=== PATIENT | male | born 1970 | race American Indian/Alaskan Native ===

== ENCOUNTER 2018-07-23 06:04 | Emergency (ER) | payer BC ==
[2018-07-23] MEDS ORDERED: Sodium Chloride 0.9% 500 ML IV STA (07:16)
--- NOTE | 2018-07-23 07:20 | ED PDOC ---
Arrival/HPI - History of Present Illness Narrative History of Present Illness (Text): 07/23/18 07:16 47 year old male with no pertinent past medical history presents to the emergency department today reporting right sided flank pain that began this morning. Patient states its throbbing in nature with radiation to the right groin. Patient reports this being his first time having this discomfort. Patient denies taking anything to help the pain. Patient in conjunction had one episode of non-billious, non bloody emesis. Patient denies any fevers, chills, nausea, vomiting, chest pain, shortness of breath, syncopal episodes, or any other complaints. Medical history: Denies Medications: Denies Allergies: Penicillins Surgical history: Penile surgery as a child PMD: None Time/Duration: 4-6 hours Symptom Onset: Sudden Symptom Course: Unchanged Quality: Throbbing Severity Level: 7 Activities at Onset: Rest Context: Sitting <Geronimo Gallagher - Last Filed: 07/23/18 10:49> <Scooter Rand - Last Filed: 07/23/18 11:08> - General Chief Complaint: Back Pain Time Seen by Provider: 07/23/18 07:05 Past Medical History - Provider Review Nursing Documentation Reviewed: Yes - Infectious Disease Hx of Infectious Diseases: None - Psychiatric Hx Substance Use: No - Anesthesia Hx Anesthesia: No <Geronimo Gallagher - Last Filed: 07/23/18 10:49> Family/Social History - Physician Review Nursing Documentation Reviewed: Yes Family/Social History: No Known Family HX Smoking Status: Former Smoker Hx Alcohol Use: Yes (1 beer) Frequency of alcohol use: Daily Hx Substance Use: No <Geronimo Gallagher - Last Filed: 07/23/18 10:49> Allergies/Home Meds <Geronimo Gallagher - Last Filed: 07/23/18 10:49> <Scooter Rand - Last Filed: 07/23/18 11:08> Allergies/Adverse Reactions: Allergies Penicillins Adverse Reaction (Verified 07/23/18 06:43) SWELLING Review of Systems - Physician Review All systems were reviewed & negative as marked: Yes - Review of Systems Constitutional: Normal. absent: Fatigue, Weight Change Eyes: Normal. absent: Vision Changes, Photophobia ENT: Normal. absent: Hearing Changes, Rhinorrhea Respiratory: Normal. absent: SOB, Cough Cardiovascular: Normal. absent: Chest Pain, Syncope Gastrointestinal: Abdominal Pain, Vomiting. absent: Appetite Changes Genitourinary Male: Normal. absent: Dysuria, Frequency Musculoskeletal: Normal. absent: Arthralgias, Back Pain Skin: Normal. absent: Rash, Pruritis Neurological: Normal. absent: Headache, Dizziness, Focal Weakness Endocrine: Normal. absent: Diaphoresis, Polyuria, Polydipsia Hemo/Lymphatic: Normal. absent: Adenopathy, Easy Bleeding Psychiatric: Normal. absent: Anxiety, Depression <Geronimo Gallagher - Last Filed: 07/23/18 10:49> Physical Exam Vital Signs Reviewed: Yes Vital Signs Temp Pulse Resp BP Pulse Ox 07/23/18 06:20 98.3 F 71 19 147/83 96 Temperature: Afebrile Blood Pressure: Normal Pulse: Regular Respiratory Rate: Normal Appearance: Positive for: Well-Appearing, Non-Toxic, Comfortable Pain Distress: Moderate Mental Status: Positive for: Alert and Oriented X 3. No: Confused, Agitated - Systems Exam Head: Present: Atraumatic, Normocephalic. No: Abrasion, Laceration Pupils: Present: PERRL. No: Sluggish, Non-Reactive Extroacular Muscles: Present: EOMI. No: Gaze Palsy Conjunctiva: Present: Normal. No: Injected Ears: No: Other Mouth: Present: Moist Mucous Membranes. No: Dry Neck: Present: Normal Range of Motion. No: Meningeal Signs, JVD Respiratory/Chest: Present: Clear to Auscultation, Good Air Exchange. No: Wheezes, Tachypneic Cardiovascular: Present: Regular Rate and Rhythm, Normal S1, S2. No: Tachycardic Abdomen: Present: Normal Bowel Sounds. No: Tenderness, McBurney's Point Tender, Ostomy Tubes Skin: Present: Dry, Normal Color. No: Cold Psychiatric: Present: Alert, Oriented x 3, Normal Insight <Geronimo Gallagher - Last Filed: 07/23/18 10:49> Vital Signs Temp Pulse Resp BP Pulse Ox 07/23/18 08:38 97.9 F 69 18 137/90 98 07/23/18 06:20 98.3 F 71 19 147/83 96 <Scooter Rand - Last Filed: 07/23/18 11:08> Medical Decision Making ED Course and Treatment: 07/23/18 07:22 47 year old male presents with right sided flank pain with radiation to the right groin. Plan: CBC/CMP U/A and Urine cx Abdomen/pelvis ct Zofran Toradol IV fluids 07/23/18 10:48 U/A negative for luekocyte esterase/nitrates Ab/pelvis ct:1. 7 mm stone in the urinary bladder distal to the right UV junction, findings consistent with recent passage of stone with mild hydroureteronephrosis and significant right perinephric inflammatory changes. 2. 1.5 cm nonobstructing stone in the lower pole of the right kidney. 3. Mild enlargement of the prostate gland with median lobe hypertrophy indenting the base of the urinary bladder. Please correlate with PSA levels. The Patient re-evaluated and stable for discharge. - RAD Interpretation Radiology Orders: 07/23/18 07:14 ABDOMEN & PELVIS [ABD & PELVIS W/O PO OR IV CONT] [CT] Stat - Medication Orders Current Medication Orders: Sodium Chloride (Sodium Chloride 0.9%) 500 mls @ 999 mls/hr IV .Q31M STA Stop: 07/23/18 07:46 Ketorolac Tromethamine (Toradol) 30 mg IVP STAT STA Stop: 07/23/18 07:14 Ondansetron HCl (Zofran Inj) 4 mg IVP STAT STA Stop: 07/23/18 07:14 <Geronimo Gallagher - Last Filed: 07/23/18 10:49> ED Course and Treatment: 07/23/18 11:07 Seen and examined with resident. 47 y/o M p/w flank pain. On exam, mild CVA tenderness. [employer]BI[employer] checked, informed of risks of medication. - Lab Interpretations Lab Results: Total Bilirubin 0.5 mg/dL (0.2-1.3) 07/23/18 07:40 AST 30 U/L (17-59) 07/23/18 07:40 ALT 23 U/L (7-56) 07/23/18 07:40 Alkaline Phosphatase 69 U/L (38-126) 07/23/18 07:40 Total Protein 9.1 g/dL (5.8-8.3) H 07/23/18 07:40 Albumin 4.8 g/dL (3.0-4.8) 07/23/18 07:40 Globulin 4.3 gm/dL 07/23/18 07:40 Albumin/Globulin Ratio 1.1 (1.1-1.8) 07/23/18 07:40 Urine Color Yellow (YELLOW) 07/23/18 10:00 Urine Appearance Clear (CLEAR) 07/23/18 10:00 Urine pH 7.5 (4.7-8.0) 07/23/18 10:00 Ur Specific [place] 1.025 (1.005-1.035) 07/23/18 10:00 Urine Protein 100 mg/dL (<30 mg/dL) H 07/23/18 10:00 Urine Glucose (UA) Negative mg/dL (NEGATIVE) 07/23/18 10:00 Urine Ketones Negative mg/dL (NEGATIVE) 07/23/18 10:00 Urine Blood Moderate (NEGATIVE) H 07/23/18 10:00 Urine Nitrate Negative (NEGATIVE) 07/23/18 10:00 Urine Bilirubin Negative (NEGATIVE) 07/23/18 10:00 Urine Urobilinogen 0.2 E.U./dL (<1 E.U./dL) 07/23/18 10:00 Ur Leukocyte Esterase Negative [place]/uL (NEGATIVE) 07/23/18 10:00 Urine RBC 20 - 25 /hpf (0-2) H 07/23/18 10:00 Urine WBC 1 - 3 /hpf (0-6) 07/23/18 10:00 Ur Epithelial Cells None /hpf (0-5) 07/23/18 10:00 Urine Bacteria Mod /hpf (NONE) 07/23/18 10:00 - RAD Interpretation Radiology Orders: 07/23/18 07:14 ABDOMEN & PELVIS [ABD & PELVIS W/O PO OR IV CONT] [CT] Stat - Medication Orders Current Medication Orders: Discontinued Medications Sodium Chloride (Sodium Chloride 0.9%) 500 mls @ 999 mls/hr IV .Q31M STA Stop: 07/23/18 07:46 Last Admin: 07/23/18 07:38 Dose: 999 mls/hr eMAR Start Stop Document 07/23/18 07:38 AD (Rec: 07/23/18 07:42 AD [facility] [id number]) Intravenous Solution Start Date 07/23/18 Start Time 07:42 Ketorolac Tromethamine (Toradol) 30 mg IVP STAT STA Stop: 07/23/18 07:14 Last Admin: 07/23/18 07:42 Dose: 30 mg MAR Pain Assessment Document 07/23/18 07:42 AD (Rec: 07/23/18 07:[address]) Pain Reassessment Is this a pain reassessment? No Presence of Pain Presence of Pain Yes Pain Scale Used Protocol: PSCALES Pain Scale Used Numeric Location Pain Location Body Site Abdomen Description Intensity of Pain at present 8 Pain Behavior Facial Grimacing IVP Administration Document 07/23/18 07:42 AD (Rec: 07/23/18 07:[address]) Charges for Administration # of IVP Administrations 1 Ondansetron HCl (Zofran Inj) 4 mg IVP STAT STA Stop: 07/23/18 07:14 Last Admin: 07/23/18 07:42 Dose: 4 mg IVP Administration Document 07/23/18 07:42 AD (Rec: 07/23/18 07:[address]) Charges for Administration # of IVP Administrations 1 <Scooter Rnad - Last Filed: 07/23/18 11:08> Disposition/Present on Arrival - Present on Arrival Any Indicators Present on Arrival: No History of DVT/PE: No History of Uncontrolled Diabetes: No Urinary Catheter: No History of Decub. Ulcer: No History Surgical Site Infection Following: None - Disposition Have Diagnosis and Disposition been Completed?: Yes Disposition Time: 10:50 Patient Plan: Discharge <Geronimo Gallagher - Last Filed: 07/23/18 10:49> <Scooter Rand - Last Filed: 07/23/18 11:08> - Disposition Diagnosis: Nephrolithiasis Disposition: HOME/ ROUTINE Condition: IMPROVED Discharge Instructions (ExitCare): Kidney Stones in Adults Additional Instructions: 1.F/u with PMD within 5 days of discharge. 2.F/u with Urology within 5 days of discharge. 3.Return to hospital for any new or worsening symptoms. Prescriptions: Ondansetron HCl [Zofran] 4 mg PO Q8 PRN #30 tablet PRN Reason: Nausea/Vomiting oxyCODONE/Acetaminophen [Percocet 5/325 mg Tab] 1 tab PO Q6 #10 tab Tamsulosin [Flomax] 0.4 mg PO DAILY #30 cap Referrals: FAMILY PROVIDER,NO [Primary Care Provider] - Follow up with primary Marilu Bro MD [Staff Provider] - Follow up with primary Forms: [email or web address] (Sami)
[2018-07-23 07:59] LABS: BASO # 0.06 K/mm3 (0.0-2.0); BASO % 0.5 % (0.0-3.0); EOS % 0.3 % (1.5-5.0); HEMOGLOBIN 14.6 g/dL (14.0-18.0); LYMPH # 2.3 (1.2-3.4); LYMPH % 18.9 % (22.0-35.0); MEAN CELL VOLUME 93.5 fl (80.0-105.0); MEAN CORPUSCULAR HEMOGLOBIN 28.7 pg (25.0-35.0); MEAN CORPUSCULAR HGB CONC 30.7 g/dl (31.0-37.0); MEAN PLATELET VOLUME 10.8 fl (7.0-11.0); MONO # 0.6 (0.1-0.6); MONO % 5.3 % (1.0-6.0); RBC 5.09 10^6/uL (3.5-6.1); RED CELL DISTRIBUTION WIDTH 13.5 % (11.5-14.5); WHITE BLOOD COUNT 12.2 10^3/uL (4.5-11.0)
[2018-07-23 08:11] LABS: ALB/GLOB RATIO 1.1 (1.1-1.8); ALBUMIN 4.8 g/dL (3.0-4.8); ALT/SGPT 23 U/L (7-56); AST/SGOT 30 U/L (17-59); BLOOD UREA NITROGEN 19 mg/dL (7-21); CALCIUM 9.4 mg/dL (8.4-10.5); GFR NON-AFRICAN AMERICAN 59
[2018-07-23 08:39] VITALS: RESP 18
--- NOTE | 2018-07-23 09:59 | CT ---
Date of service: 07/23/2018 PROCEDURE: CT Abdomen and Pelvis without intravenous contrast HISTORY: Evaluate for nephrolithiasis COMPARISON: None. TECHNIQUE: CT scan of the abdomen and pelvis was performed without administration of intravenous contrast. Oral contrast was not administered. Coronal and sagittal reformatted images were obtained. Radiation dose: Total exam DLP = 1234.53 mGy-cm. This CT exam was performed using one or more of the following dose reduction techniques: Automated exposure control, adjustment of the mA and/or kV according to patient size, and/or use of iterative reconstruction technique. FINDINGS: LOWER THORAX: There is subsegmental atelectasis in the lingula and lower lobes. LIVER: Mild hepatomegaly and fatty liver. No gross lesion or ductal dilatation. GALLBLADDER AND BILE DUCTS: Well distended. No calcified gallstones. No common bile duct dilatation. PANCREAS: Normal in size. No gross lesion or ductal dilatation. SPLEEN: Normal in size. ADRENALS: Normal in size. No discrete nodule. KIDNEYS AND URETERS: There is mild edema and asymmetric enlargement of the right kidney with significant perinephric inflammatory changes. There is mild hydronephrosis and diffuse dilatation of the right ureteral. There is a 1.5 cm nonobstructing stone in the lower pole of the right kidney. The left kidney is normal in size without hydronephrosis or nephrolithiasis. The left ureter is not dilated. VASCULATURE: Normal in caliber. No aortic aneurysm. No aortic atherosclerotic calcification or mural plaque present. BOWEL: Evaluation of the bowel is limited in the absence of oral contrast. The small bowel loops are normal in caliber. The colon is normal in size. No bowel dilatation or wall thickening. No bowel obstruction. APPENDIX: Normal appendix. PERITONEUM: No free fluid. No free air. LYMPH NODES: No enlarged lymph nodes. BLADDER: Well distended and normal in appearance. There is a 7 mm stone distal to the right UV junction. REPRODUCTIVE: There is mild enlargement of the prostate gland with median lobe hypertrophy indenting the base of the urinary bladder BONES: No acute fracture. There is diffuse bone demineralization and mild multilevel degenerative changes in the spine. OTHER FINDINGS: None. IMPRESSION: 1. 7 mm stone in the urinary bladder distal to the right UV junction, findings consistent with recent passage of stone with mild hydroureteronephrosis and significant right perinephric inflammatory changes. 2. 1.5 cm nonobstructing stone in the lower pole of the right kidney. 3. Mild enlargement of the prostate gland with median lobe hypertrophy indenting the base of the urinary bladder. Please correlate with PSA levels. The
[2018-07-23 10:29] LABS: PH,URINE 7.5 (4.7-8.0); URINE APPEARANCE CLEAR (CLEAR); URINE BILIRUBIN NEGATIVE (NEGATIVE); URINE BLOOD MODERATE (NEGATIVE); URINE COLOR YELLOW (YELLOW); URINE GLUCOSE (UA) NEGATIVE (NEGATIVE); URINE LEUKOCYTE ESTERASE NEGATIVE Leu/uL (NEGATIVE); URINE PROTEIN 100 mg/dL (<30 mg/dL); URINE UROBILINOGEN 0.2 E.U./dL (<1 E.U./dL)
[2018-07-23 10:46] LABS: URINE BACTERIA MOD /hpf; URINE RBC 20 - 25 /hpf (0-2)
[2018-07-23 11:12] VITALS: BP 128/77; PULSE 78; TEMP 97.8; O2SAT 97
== END 2018-07-23 11:11 | disposition home or self-care (01) ==
LOC: ED 06:04
DX: N20.0 Calculus of kidney (principal); Z88.0 Allergy status to penicillin; Z87.891 Personal history of nicotine dependence
CPT/HCPCS: 74176; 80053; 81001; 85025; 87086; 96374; 96375; 99284; J1885; J2405; J7040

== ENCOUNTER 2018-09-09 10:00 | Outpatient (CLI) | payer BC | END 2018-09-09 10:01 | disposition home or self-care (01) | LOC: CARDIO 10:00 ==